=== PATIENT | female | born 1940 | race African-American/Black ===

== ENCOUNTER 2022-07-05 03:56 | Emergency (ER) | payer OTHER ==
[~2022-07-05] VITALS: Ht 175.3 cm; Wt 93.0 kg
--- NOTE | 2022-07-05 04:27 | NUR ---
Maninder from home to er br bed 13. aaox2, not in resp distress. brought in for rolling off the bed which cause her to hit the back of her head againts the floor. c/o pain on the back of head. no blood thinner use report. md is at bedside.
--- NOTE | 2022-07-05 06:14 | NUR ---
NICOLAS- DAUGHTER [phone]
--- NOTE | 2022-07-05 07:30 | NUR ---
CALL FROM [facility],REPORT GIVEN TO ASK FOR TX BACK HOME,WILL HAVE JEY MCKEON GIVE US A CALL
--- NOTE | 2022-07-05 07:59 | NUR ---
CALL FROM [facility],ETA [phone]
--- NOTE | 2022-07-05 10:13 | NUR ---
[facility] AT BEDSIDE TO PICKUP PT; BEDSIDE ENDORSEMENT DONE
--- NOTE | 2022-07-05 10:27 | NUR ---
SPOKE W/ AQUAL, DTR; DTR IS AT HOME TO RECEIVE PT.
--- NOTE | 2022-07-05 10:28 | NUR ---
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 Written and verbal after care instructions given. Patient unable to sign d/c form d/t baseline dementia. Form signed by me and witnessed by another RN Phoebe.
[2022-07-05 10:29] VITALS: BP 135/80
== END 2022-07-05 10:29 | disposition home or self-care (01) ==
LOC: ER 03:59
DX: R51.9 Headache, unspecified (principal)
CPT/HCPCS: 70450-TC; 72125-TC

== ENCOUNTER 2022-07-23 03:56 | Emergency (ER) | payer OTHER ==
[~2022-07-23] VITALS: Ht 154.9 cm; Wt 71.2 kg
--- NOTE | 2022-07-23 04:12 | NUR ---
BIBRA FROM HOME FOR "MORE FREQUENT SEIZURE/TREMOR LIKE ACTIVITY" PER DAUGHTER. PT A.OX1; NORMAL PER BASELINE. TOLERATING R/A WELL WITH NO RESP DISTRESS. CONNECTED PT TO POX AND MONITOR. SAFETY MEASURES IN PLACE.
--- NOTE | 2022-07-23 04:28 | NUR ---
RAC #18G S/L BLOOD COLLECTED AND SENT TO LAB
--- NOTE | 2022-07-23 04:51 | NUR ---
URINE COLLECTED AND SENT TO LAB
[2022-07-23 05:00] LABS: BASOPHILS % (AUTO) 0.4 % (0.0-2.0); EOSINOPHILS % (AUTO) 1.7 % (0.0-6.0); HEMATOCRIT 35 % (33-45); HEMOGLOBIN 11.4 g/dL (11.5-14.8); LYMPHOCYTES # (AUTO) 3.4 K/uL (0.8-4.8); LYMPHOCYTES % (AUTO) 32.1 % (20.0-44.0); MEAN CORPUSCULAR HGB CONC 33 g/dl (31.0-36.0); MEAN CORPUSCULAR VOLUME 94 fL (82-100); MONOCYTES # (AUTO) 0.8 K/uL (0.1-1.30); MONOCYTES % (AUTO) 7.2 % (2.0-12.0); NEUTROPHILS # (AUTO) 6.2 K/uL (1.8-8.9); NEUTROPHILS % (AUTO) 58.6 % (43.0-81.0); PLATELET COUNT (AUTO) 311 K/uL (150-450); RED BLOOD CELL COUNT(AUTO) 3.74 MIL/uL (4.0-5.2); WHITE BLOOD COUNT (AUTO) 10.5 K/uL (4.3-11.0)
--- NOTE | 2022-07-23 05:02 | NUR ---
PT TAKEN TO CT VIA MATEUS
[2022-07-23 05:14] LABS: CALCIUM, SERUM 9.1 mg/dL (8.5-10.1); CARBON DIOXIDE 25 mmol/L (21-32); CHLORIDE 100 mmol/L (98-107); CREATININE 1.4 mg/dL (0.6-1.3); GLUCOSE 120 mg/dL (74-106); POTASSIUM 4.2 mmol/L (3.5-5.1); SODIUM SERUM 134 mmol/L (136-145); UREA NITROGEN, BLOOD 10 mg/dL (7-18)
[2022-07-23 05:21] LABS: ALANINE AMINOTRANSFERASE 16 U/L (12-78); ALBUMIN 3.3 g/dL (3.4-5.0); ALCOHOL, BLOOD < 3 mg/dL (0-0); ALKALINE PHOSPHATASE 113 U/L (46-116); ASPARTATE AMINOTRANSFERASE 20 U/L (15-37); BILIRUBIN,DIRECT 0.2 mg/dL (0.0-0.2); BILIRUBIN,TOTAL 0.4 mg/dL (0.2-1.0); TOTAL PROTEIN, SERUM 8.5 g/dL (6.4-8.2)
[2022-07-23 06:14] LABS: BILIRUBIN,URINE NEGATIVE (NEGATIVE); COLOR,URINE YELLOW (YELLOW); LEUKOCYTE ESTERASE ,URINE NEGATIVE (NEGATIVE); NITRITE, URINE NEGATIVE (NEGATIVE); PH,URINE 5.5 (5.0-8.0); PROTEIN,URINE NEGATIVE (NEGATIVE); UGLUCOSE NEGATIVE (NEGATIVE); UROBILINOGEN,URINE 0.2 EU/dL (0.2)
[2022-07-23 06:32] LABS: WBC,URINE 0-2 /HPF (0-3)
[2022-07-23 06:33] LABS: BACTERIA,URINE Few /HPF (None Seen)
--- NOTE | 2022-07-23 07:11 | NUR ---
[facility] paged
--- NOTE | 2022-07-23 07:14 | NUR ---
DR. IVY ON PHONE CALL WITH DR. SANTANA FROM [facility]
--- NOTE | 2022-07-23 07:49 | NUR ---
[facility] 1000. BUT IT WILL CANCELLED IF DAUGHTER CANNOT BE REACHED OR CONFIRMED AT HOME
--- NOTE | 2022-07-23 08:27 | NUR ---
Multiple calls made to [phone] goes to Voice mail- Message left
--- NOTE | 2022-07-23 09:28 | NUR ---
Spoke to daughter Quang who confirmed she is present at address and able to receive patient. Transport present in ER and made aware Addendum: 07/23/22 at 0933 by SCOUT Daughter address and phone number given to medical secretary receptionist to update patient records
--- NOTE | 2022-07-23 09:35 | NUR ---
IV removed. Catheter intact and site benign. Pressure and 4x4 applied to site. No bleeding noted.Patient discharged to home in stable condition. Written and verbal after care instructions given. Patient daughter verbalizes understanding of instruction.
[2022-07-23 09:36] VITALS: BP 136/74
== END 2022-07-23 09:37 | disposition home or self-care (01) ==
LOC: ER 04:05
DX: G40.909 Epilepsy, unspecified, not intractable, without status epilepticus (principal)
CPT/HCPCS: 36415; 70450-TC; 71045-TC; 80048-TC; 80076-TC; 81001; 82962-TC; 85025-TC; 85730-TC; G0480